=== PATIENT | male | born 1965 | race Caucasian/White ===

== ENCOUNTER 2024-09-30 06:31 | Emergency (ER) | payer OTHER ==
[2024-09-30] MEDS ORDERED: Lidocaine 1% (PF) 30 ML VIAL ONE (06:36)
[2024-09-30] MEDS ORDERED: traMADol HCl 50 MG TAB ONE (07:57)
[2024-09-30] MEDS ORDERED: Ibuprofen 200 MG TAB ONE (07:59)
== END 2024-09-30 08:56 | disposition home or self-care (01) ==
LOC: NAV ERS 06:31
DX: S01.01XA Laceration without foreign body of scalp, initial encounter (principal); I10 Essential (primary) hypertension; F17.210 Nicotine dependence, cigarettes, uncomplicated; J44.9 Chronic obstructive pulmonary disease, unspecified; Z79.899 Other long term (current) drug therapy; W01.10XA Fall on same level from slipping, tripping and stumbling with subsequent striking against unspecified object, initial encounter
CPT/HCPCS: 12002; 70450; 72125

== ENCOUNTER 2024-09-30 19:02 | Emergency (ER) | payer OTHER ==
[2024-09-30] MEDS ORDERED: Sodium Chloride 0.9% 1,000 ML ONE (19:32)
[2024-09-30] MEDS ORDERED: Diazepam 10 MG/2 ML SYRINGE ONE ×2 (20:02→21:16)
[2024-09-30 20:10] LABS: #Basophils 0.1 thou/uL (0.0-0.2); #Lymphocytes 2.4 thou/uL (1.20-3.40); #Monocytes 0.6 thou/uL (0.11-0.59); #Neutrophils 6.3 thou/uL (1.40-6.50); %Basophils 0.7 % (0.0-1.0); %Eosinophils 0.1 % (0.0-10.0); %Lymphocytes 25.8 % (21.0-51.0); %Monocytes 6.3 % (0.0-10.0); %Neutrophils 67.1 % (42.0-75.0); Hematocrit 50.5 % (42.0-52.0); Hemoglobin 16.3 g/dL (14.0-18.0); Mean Corpuscular HGB CONC 32.2 g/dL (32.0-36.0); Mean Corpuscular Hemoglobin 28.8 pg (27.0-31.0); Mean Corpuscular Volume 89.3 fl (78.0-98.0); Mean Platelet Volume 6.5 fL (7.4-10.4); Platelet Count 291 10x3/uL (130-400); RBC Distribution Width 13.2 % (11.5-14.5); Red Blood Cell (RBC) Count 5.65 mill/uL (4.70-6.10); White Blood Cell (WBC) Count 9.4 10x3/uL (4.8-10.8)
[2024-09-30 20:37] LABS: ALT (SGPT) 114 U/L (8-55); AST (SGOT) 92 U/L (5-34); Albumin 4.2 g/dL (3.5-5.0); Alkaline Phosphatase 71 U/L (40-110); Anion Gap 23 mmol/L (10-20); BUN (Urea Nitrogen) 16 mg/dL (8.4-25.7); Bilirubin, Total 0.4 mg/dL (0.2-1.2); Calc. Creatinine Clearance 0 mL/min (70-130); Calcium 8.7 mg/dL (7.8-10.44); Carbon Dioxide 18 mmol/L (22-29); Chloride 104 mmol/L (98-107); Estimated GFR 94; Globulin 3.4 g/dL (2.4-3.5); Glucose 77 mg/dL (70-105); Protein, Total 7.6 g/dL (6.0-8.3); Sodium 141 mmol/L (136-145)
[2024-09-30] MEDS ORDERED: D5 1/2 NS w/20 mEq KCL 1,000 ML ONE (21:00)
[2024-09-30] MEDS ORDERED: Ketorolac Tromethamine 30 MG (1 mL) VIAL ONE (21:15)
== END 2024-10-01 00:42 | disposition short-term general hospital (02) ==
LOC: NAV ERS 19:02
DX: F10.20 Alcohol dependence, uncomplicated (principal); Y90.8 Blood alcohol level of 240 mg/100 ml or more; W19.XXXA Unspecified fall, initial encounter
CPT/HCPCS: 12002; 70450; 72125; 80053; 80307; 85025; 94760; 96365; 96366; 96375; 96376; J1885; J3360; J3480; J7030